=== PATIENT | female | born 1930 | race Caucasian/White ===

== ENCOUNTER 2016-11-08 16:13 | Emergency (ER) | payer OTHER, MEDICAID ==
[2016-11-08 16:35] VITALS: RESP 18
--- NOTE | 2016-11-08 17:02 | EDPHY ---
H & P Time Seen by Provider: 11/08/16 16:56 HPI/ROS: Chief complaint. High blood pressure, short of breath, neck pain HPI. 85-year-old female presents emergency department with multiple complaints. All her symptoms began at noon today. Her left leg is getting numb however there is no weakness and she is able to walk. She has no bowel or bladder symptoms. She does seem to be urinating more frequently. She has some nausea but no abdominal pain and no vomiting. Some posterior neck discomfort. Mild headache. Apparently blood pressure prior to arrival was 215/115. She is not sick and has not had fever cough. Slight shortness of breath but no chest pain. Chronically swollen legs that appeared not to be changed per her son. ROS Constitutional. no fever/chills, no weakness Eyes. no problems with vision ENT. no sore throat, no nasal drainage Cardiovascular. no chest pain Respiratory. Shortness of breath Abdominal. No abdominal pain. Nausea. No vomiting or diarrhea . Urinary frequency MS. posterior neck pain Skin. no rash Lymph. no swollen glands Neuro. Headache Past Medical/Surgical History: Past medical history significant for atrial fibrillation with pacemaker. Wandering eyes, urosepsis, CPAP, UTIs, kidney stones, polycystic kidneys Social History: , nonsmoker, no alcohol Smoking Status: Never smoked Physical Exam: General Appearance: Alert well-developed female mild distress vital signs are stable. Current blood pressure 153/94. She is afebrile. O2 saturation room air 94% Eyes: Pupils equal round however the left eye has chronically deviation to the lateral side. This is normal per son. ENT, Mouth: Mucous membranes are moist. Respiratory: There are no retractions, lungs are clear to auscultation. Cardiovascular: Regular rate and rhythm. Gastrointestinal: Abdomen is soft and nontender, no masses, bowel sounds normal. Neurological: Awake and alert, sensory and motor exams grossly normal. Speech is normal. Cranial nerves normal other than left eye deviating the left. No pronator drift. Jwiite-rd-adol is normal. Great toe strength is normal. Reflexes symmetric Skin: Warm and dry, no rashes. Musculoskeletal: Neck mildly tender along the posterior aspect. Extremities symmetrical, full range of motion. Psychiatric: Patient is oriented X 3, there is no agitation. Constitutional: Initial Vital Signs Temperature (C) 36.6 C 11/08/16 16:32 Heart Rate 76 11/08/16 16:32 Respiratory Rate 18 11/08/16 16:32 Blood Pressure 153/94 H 11/08/16 16:32 O2 Sat (%) 94 11/08/16 16:32 O2 Delivery Mode Room Air Allergies/Adverse Reactions: No Known Allergies Allergy (Verified 11/08/16 16:31) Home Medications: Medication Instructions Recorded Carvedilol [Coreg (*)] 3.125 mg PO HS 01/07/13 Warfarin Sodium 5 mg PO SUMOTUWETHSA 01/07/13 Warfarin Sodium [Coumadin 5MG (*)] 2.5 mg PO FR 10/02/15 Flecainide Acetate 100 mg PO 11/08/16 Medical Decision Making - Diagnostics EKG Interpretation: EKG interpreted by me shows an atrial paced rhythm with underlying atrial fibrillation. Mild interventricular conduction delay. Left axis deviation. No significant ST elevation or depression. No arrhythmia. The rate is 60 Somewhat worse left bundle branch block and interventricular conduction delay from previous EKG in November 2015 Imaging Results: Imaging Impressions Chest X-Ray 11/08/16 17:16 Impression: Clear lungs. Negative portable chest. Head CT 11/08/16 17:16 Impression: 1. No acute intracranial findings. 2. Diffuse cerebral atrophy with periventricular and subcortical low attenuation consistent with chronic microvascular ischemic gliosis. Findings discussed with FRANCOIS WILCOX 11/08/2016 at 18:48. Cervical Spine CT 11/08/16 17:18 Impression: 1. No acute posttraumatic abnormality identified. If there is persistent pain or a neurologic deficit, consider MRI and/or flexion and extension views, if clinically indicated. 2. Degenerative change, with probable moderate spinal canal narrowing from C5 through C7. 3. Mild carotid atherosclerosis. Findings discussed with Francois Wilcox M.D., on November 08, 2016 at 1848. Chest x-ray interpreted by me is normal Head CT without IV contrast shows age-appropriate atrophy but no evidence of intracranial bleeding Cervical spine shows DJD but no significant cervical spinal canal stenosis Procedures: IV normal saline, monitor ED Course/Re-evaluation: Re-evaluation 8:15 p.m.--patient is stable. Current blood pressure 145/82. The patient, her son, and I discussed imaging and lab results as well as EKG findings. We discussed treatment plan including criteria for return importance of follow-up and further evaluation. They expressed understanding and agreement Differential Diagnosis: I considered intracranial bleeding is the patient is on blood thinners. I considered cervical stenosis as a cause of leg paresthesias. I considered congestive heart failure, pneumonia, acute coronary syndrome. - Data Points Laboratory Results: Laboratory Results 11/08/16 17:11 11/08/16 17:11 11/08/16 11/08/16 11/08/16 19:15 17:11 17:11 WBC RBC Hgb Hct MCV MCH MCHC RDW Plt Count MPV Neut % (Auto) Lymph % (Auto) Preston % (Auto) Eos % (Auto) Baso % (Auto) Nucleat RBC Rel Count Absolute Neuts (auto) Absolute Lymphs (auto) Absolute Monos (auto) Absolute Eos (auto) Absolute Basos (auto) Absolute Nucleated RBC Immature Gran % Immature Gran # PT 23.0 SEC H SEC (12.0-15.0) INR 2.02 H (0.83-1.16) APTT 32.4 SEC SEC (23.0-38.0) Sodium 134 mEq/L mEq/L (134-144) Potassium 4.2 mEq/L mEq/L (3.5-5.2) Chloride 103 mEq/L mEq/L (97-110) Carbon Dioxide 25 mEq/l mEq/l (22-31) Anion Gap 6 mEq/L L mEq/L (8-16) BUN 21 mg/dL mg/dL (7-23) Creatinine 0.8 mg/dL mg/dL (0.6-1.0) Estimated GFR > 60 Glucose 103 mg/dL H mg/dL (70-100) Calcium 9.2 mg/dL mg/dL (8.5-10.4) Troponin I < 0.012 ng/mL ng/mL (0.000-0.034) NT-Pro-B Natriuret Pep 839 pg/mL H pg/mL (0-450) Urine Color PALE YELLOW Urine Appearance CLEAR Urine pH 5.0 (5.0-7.5) Ur Specific [place] 1.004 (1.002-1.030) Urine Protein NEGATIVE (NEGATIVE) Urine Ketones NEGATIVE (NEGATIVE) Urine Blood 2+ H (NEGATIVE) Urine Nitrate NEGATIVE (NEGATIVE) Urine Bilirubin NEGATIVE (NEGATIVE) Urine Urobilinogen NEGATIVE EU EU (0.2-1.0) Ur Leukocyte Esterase NEGATIVE (NEGATIVE) Urine RBC 1-3 /hpf /hpf (0-3) Urine WBC 1-3 /hpf /hpf (0-3) Ur Epithelial Cells TRACE /lpf /lpf (NONE-1+) Urine Glucose NEGATIVE (NEGATIVE) 11/08/16 17:11 WBC 4.03 10^3/uL 10^3/uL (3.80-9.50) RBC 4.50 10^6/uL 10^6/uL (4.18-5.33) Hgb 13.9 g/dL g/dL (12.6-16.3) Hct 41.6 % % (38.0-47.0) MCV 92.4 fL fL (81.5-99.8) MCH 30.9 pg pg (27.9-34.1) MCHC 33.4 g/dL g/dL (32.4-36.7) RDW 13.5 % % (11.5-15.2) Plt Count 263 10^3/uL 10^3/uL (150-400) MPV 9.7 fL fL (8.7-11.7) Neut % (Auto) 61.7 % % (39.3-74.2) Lymph % (Auto) 21.3 % % (15.0-45.0) Preston % (Auto) 13.6 % H % (4.5-13.0) Eos % (Auto) 2.7 % % (0.6-7.6) Baso % (Auto) 0.7 % % (0.3-1.7) Nucleat RBC Rel Count 0.0 % % (0.0-0.2) Absolute Neuts (auto) 2.48 10^3/uL 10^3/uL (1.70-6.50) Absolute Lymphs (auto) 0.86 10^3/uL L 10^3/uL (1.00-3.00) Absolute Monos (auto) 0.55 10^3/uL 10^3/uL (0.30-0.80) Absolute Eos (auto) 0.11 10^3/uL 10^3/uL (0.03-0.40) Absolute Basos (auto) 0.03 10^3/uL 10^3/uL (0.02-0.10) Absolute Nucleated RBC 0.00 10^3/uL 10^3/uL (0-0.01) Immature Gran % 0.0 % % (0.0-1.1) Immature Gran # 0.00 10^3/uL 10^3/uL (0.00-0.10) PT INR APTT Sodium Potassium Chloride Carbon Dioxide Anion Gap BUN Creatinine Estimated GFR Glucose Calcium Troponin I NT-Pro-B Natriuret Pep Urine Color Urine Appearance Urine pH Ur Specific Rogers Urine Protein Urine Ketones Urine Blood Urine Nitrate Urine Bilirubin Urine Urobilinogen Ur Leukocyte Esterase Urine RBC Urine WBC Ur Epithelial Cells Urine Glucose Medications Given: Discontinued Medications Acetaminophen (Tylenol) 650 mg PO EDNOW ONE Stop: 11/08/16 18:03 Last Admin: 11/08/16 18:06 Dose: 650 mg Promethazine HCl (Phenergan) 12.5 mg IVP EDNOW ONE Stop: 11/08/16 17:18 Last Admin: 11/08/16 17:28 Dose: 12.5 mg Departure - Departure Disposition: Home, Routine, Self-Care Clinical Impression: Hypertension Qualifiers: Hypertension type: essential hypertension Qualified Code(s): I10 - Essential ( primary) hypertension Dyspnea Qualifiers: Dyspnea type: unspecified Qualified Code(s): R06.00 - Dyspnea, unspecified Condition: Good Instructions: Hypertension (ED) Additional Instructions: Continue regular medications. Return for worsening symptoms. Recheck at [facility] in the next 2-3 days without fail Referrals: [facility] [Other] - 2-3 days without fail
[2016-11-08] MEDS ORDERED: PROMETHAZINE HCL 25 MG/ML INJ IVP ONE (17:17)
[2016-11-08 17:22] LABS: ADD DIFF? NO; ADD MORPH? NO; ADD SCAN? NO; ATYPICAL LYMPHOCYTE FLAG 0 (0-99); FRAGMENT RBC FLAG 0 (0-99); HEMATOCRIT 41.6 % (38.0-47.0); HEMOGLOBIN 13.9 g/dL (12.6-16.3); LEFT SHIFT FLG 0 (0-99); LIPEMIA HEMOLYSIS FLAG 80 (0-99); MEAN CELL HEMOGLOBIN 30.9 pg (27.9-34.1); MEAN CELL HEMOGLOBIN CONCENTR. 33.4 g/dL (32.4-36.7); MEAN CELL VOLUME 92.4 fL (81.5-99.8); MEAN PLATELET VOLUME 9.7 fL (8.7-11.7); PLATELET CLUMPS FLAG 0 (0-99); PLATELET COUNT 263 10^3/uL (150-400); RED CELL DISTRIBUTION WIDTH 13.5 % (11.5-15.2)
--- NOTE | 2016-11-08 17:30 | CPEKG ---
Heart Rate: 60 RR Interval: 1000 P-R Interval: 178 QRSD Interval: 148 QT Interval: 452 QTC Interval: 452 QRS [place]: -12 T Wave [place]: 80 EKG Severity - ABNORMAL ECG - EKG Impression: ATRIAL-PACED RHYTHM EKG Impression: LEFT BUNDLE BRANCH BLOCK Electronically Signed By: Erik Wilcox 08-Nov-2016 23:42:23
[2016-11-08 17:31] LABS: ANION GAP 6 mEq/L (8-16); CALCIUM 9.2 mg/dL (8.5-10.4); CARBON DIOXIDE 25 mEq/l (22-31); CHLORIDE 103 mEq/L (97-110); CREATININE 0.8 mg/dL (0.6-1.0); GLOMERULAR FILTRATION RATE > 60; GLUCOSE 103 mg/dL (70-100); INR 2.02 (0.83-1.16); POTASSIUM 4.2 mEq/L (3.5-5.2); SODIUM 134 mEq/L (134-144)
[2016-11-08 17:32] LABS: APTT 32.4 SEC (23.0-38.0)
[2016-11-08 17:44] LABS: TROPONIN I < 0.012 ng/mL (0.000-0.034)
[2016-11-08] MEDS ORDERED: ACETAMINOPHEN 325 MG TAB PO ONE (18:02)
[2016-11-08 19:17] VITALS: BP 179/84; PULSE 61; TEMP 98.4; O2SAT 93
[2016-11-08 19:27] LABS: COLOR PALE YELLOW; LEUKOCYTE ESTERASE,URINE NEGATIVE (NEGATIVE); NITRITE,URINE NEGATIVE (NEGATIVE)
== END 2016-11-08 20:36 | disposition home or self-care (01) ==
DX: R06.00 Dyspnea, unspecified (principal); I10 Essential (primary) hypertension; Z95.0 Presence of cardiac pacemaker; Z79.01 Long term (current) use of anticoagulants
CPT/HCPCS: 70450; 71010; 72125; 93005; 96374; 99285; J2550

== ENCOUNTER → 2017-03-26 | Outpatient (CLI) | payer OTHER, MEDICAID | LOC: CIMAGING 11:11 | PROVIDERS: ATTEND Family Medicine | DX: R07.9 Chest pain, unspecified (principal); M51.34 Other intervertebral disc degeneration, thoracic region | CPT/HCPCS: 71046-PO ==

== ENCOUNTER 2017-03-30 16:58 | Emergency (ER) | payer OTHER, MEDICAID ==
[2017-03-30 17:15] VITALS: O2SAT 94
--- NOTE | 2017-03-30 17:31 | CPEKG ---
Heart Rate: 124 RR Interval: 484 QRSD Interval: 186 QT Interval: 424 QTC Interval: 609 P [place]: 0 QRS [place]: 15 T Wave [place]: 215 EKG Severity - ABNORMAL ECG - EKG Impression: Atrial fibrillation with RVR EKG Impression: LEFT BUNDLE BRANCH BLOCK Electronically Signed By: Alyssa Azevedo 30-Mar-2017 19:04:31
--- NOTE | 2017-03-30 17:41 | EDPHY ---
H & P Time Seen by Provider: 03/30/17 17:32 HPI/ROS: CHIEF COMPLAINT: Heart palpitations, weakness, headaches, shoulder pain HISTORY OF PRESENT ILLNESS: This patient is an anticoagulated (Coumadin) 85 y/o female with history of atrial fibrillation complaining of palpitations, weakness, and chest and back pains. For the past two weeks, she has noted palpitations and rapid heart rate with minor exertion. She has also had shortness of breath, dizziness, and intermittent pains in her lower sternal area, also particularly with exertion. She has a pacemaker in place, which was interrogated recently and showed only one brief episode of afib in the last several months. Her atrial fibrillation is generally controlled with Flecainide BID. At a home care visit last week, she had laboratory tests including thyroid levels. She has history of parathyroid surgery 10 years ago, and her family is concerned because her symptoms similar to precautions for hyperparathyroidism. No history of LA. The patient has recurrent UTIs and began taking Macrobid on Tuesday. She has complained of some abdominal pain as well. Currently, the patient is having some chest pressure which occasionally radiates to her back. This has occurred in the past when she is in atrial fibrillation. No fever, vomiting, diarrhea, or other associated symptoms. HPI obtained via patient's daughter translating at bedside. REVIEW OF SYSTEMS: A 10 point review of systems was performed and is negative with the exception of the elements mentioned in the history of present illness. Past Medical/Surgical History: Atrial fibrillation Hyperparathyroidism Social History: Nonsmoker. Daughter at bedside. Lives in [place]. Smoking Status: Never smoked Physical Exam: General Appearance: Alert, pleasant Eyes: Pupils equal and round, no conjunctival pallor or injection ENT, Mouth: Mucous membranes moist Neck: Normal inspection Respiratory: Rales at bases. Cardiovascular: Regular tachycardia Gastrointestinal: LLQ tenderness. Neurological: A&O, nonfocal exam Skin: Warm and dry, no rash Extremities: Nontender, no pedal edema Psychiatric: Mood and affect normal Constitutional: Initial Vital Signs Temperature (C) 36.6 C 03/30/17 17:12 Heart Rate 121 H 03/30/17 17:12 Respiratory Rate 20 03/30/17 17:12 Blood Pressure 98/68 L 03/30/17 17:12 O2 Sat (%) 94 03/30/17 17:12 O2 Delivery Mode Room Air Allergies/Adverse Reactions: No Known Allergies Allergy (Verified 03/30/17 17:11) Home Medications: Medication Instructions Recorded Carvedilol [Coreg (*)] 3.125 mg PO HS 01/07/13 Warfarin Sodium 5 mg PO SUMOTUWETHSA 01/07/13 Warfarin Sodium [Coumadin 5MG (*)] 2.5 mg PO FR 10/02/15 Flecainide Acetate 100 mg PO 11/08/16 Nitrofurantoin 03/30/17 Medical Decision Making - Diagnostics EKG Interpretation: EKG interpreted by me reveals a wide complex tachycardia, ventricular rate 124, consistent with atrial fibrillation with RVR and a left bundle branch block. Imaging Results: Chest X-Ray 03/30/17 17:55 Impression: Stable exam, with no evidence of congestive heart failure. ED Course/Re-evaluation: This patient presents with multiple complaints. gummed tape press operator reveals a wide complex tachycardia. EKG reveals a wide complex tachycardia, rate 124, left bundle branch block pattern. Prior EKG also reveals a left bundle branch block. She is likely in atrial fibrillation with RVR. I doubt that this is a ventricular dysrhythmia. Pt took own Flecainide. 1840: gummed tape press operator reveals normal sinus rhythm, rate 60. She feels back to normal. The palpitations have resolved. Repeat EKG reveals a paced rhythm, rate 60. After some discussion with the patient and her daughter, I will attempt to ambulate her. If she is asymptomatic with ambulation, I will plan to discharge her home. After further discussion, it sounds like she has had more frequent symptomatic episodes of atrial fibrillation with RVR. There is no evidence of acute coronary syndrome. She will follow up with her teletype mechanic. The patient ambulated with a steady gait. She denied shortness of breath or chest discomfort. She did complain of dizziness, though according to her daughter, she is always somewhat dizzy with ambulation. I feel that she is safe and stable for discharge home. Pt provided with laboratory results. Plan to d/c home. Differential Diagnosis: Differential diagnosis includes though it is not limited to pneumonia, pneumothorax, pulmonary embolism, aortic dissection, pericarditis, acute coronary syndrome. - Data Points Laboratory Results: Laboratory Results 03/30/17 17:47 03/30/17 17:47 Departure - Departure Disposition: Home, Routine, Self-Care Clinical Impression: Atrial fibrillation Qualifiers: Atrial fibrillation type: paroxysmal Qualified Code(s): I48.0 - Paroxysmal atrial fibrillation Condition: Good Instructions: A-fib (Atrial Fibrillation) (ED) Additional Instructions: 1. Follow up with your primary care provider in 2-3 days for further evaluation. 2. Make an appointment with your teletype mechanic as well for follow up. 3. Return to the emergency department for chest pain, shortness of breath, dizziness, fainting, or other worsening of condition or concerns. Referrals: Rizwan Medrano MD [Primary Care Provider] - As per Instructions Report Scribed for: Alyssa Azevedo Report Scribed by: Kimberly Bedoya Date of Report: 03/30/17 Time of Report: 17:50 Physician Review and Approval Statement: 03/30/17 17:50 Portions of this note were transcribed by a medical records receptionist. I personally performed a history, physical exam, medical decision making, and confirmed accuracy of information the transcribed note.
[2017-03-30 18:01] LABS: PLATELET COUNT 290 10^3/uL (150-400)
[2017-03-30 18:46] LABS: INR 1.89 (0.83-1.16); PROTIME(PATIENT) 21.8 SEC (12.0-15.0)
--- NOTE | 2017-03-30 18:47 | CPEKG ---
Heart Rate: 60 RR Interval: 1000 P-R Interval: 196 QRSD Interval: 144 QT Interval: 428 QTC Interval: 428 P [place]: 0 QRS [place]: -19 T Wave [place]: 240 EKG Severity - ABNORMAL ECG - EKG Impression: ATRIAL-PACED COMPLEXES EKG Impression: LEFT BUNDLE BRANCH BLOCK Electronically Signed By: Alyssa Azevedo 30-Mar-2017 19:03:46
[2017-03-30 19:56] VITALS: BP 110/57; PULSE 60; RESP 18; TEMP 97.5
== END 2017-03-30 19:45 | disposition home or self-care (01) ==
DX: I48.0 Paroxysmal atrial fibrillation (principal); Z79.01 Long term (current) use of anticoagulants
CPT/HCPCS: 82947-QW

== ENCOUNTER → 2018-05-05 | Outpatient (CLI) | payer OTHER, MEDICAID | LOC: CIMAGING 12:17 | PROVIDERS: ATTEND Physician Assistant | DX: R06.02 Shortness of breath (principal); J84.10 Pulmonary fibrosis, unspecified; M40.204 Unspecified kyphosis, thoracic region; Z95.0 Presence of cardiac pacemaker | CPT/HCPCS: 71046-PO ==